=== PATIENT | male | born 1975 | race Caucasian/White ===

== ENCOUNTER 2019-08-26 17:00 | Emergency (ER) | payer MEDICARE ==
[2019-08-26] MEDS ORDERED: Naloxone 0.4 MG in Sodium Chloride 0.9% 100 ML IV ONE (17:01)
[2019-08-26] MEDS ORDERED: Sodium Chloride 0.9% 1,000 ML IV ONE ×2 (17:03→18:09)
[2019-08-26] MEDS ORDERED: Naloxone 0.4 MG/ML SDV IVPUSH ONE (17:05)
[2019-08-26] MEDS ORDERED: Naloxone 0.4 MG/ML SDV ONE ×3 (17:06→17:08)
--- NOTE | 2019-08-26 17:15 | EDM.PDOC ---
ED HPI GENERAL MEDICAL PROBLEM - General Chief Complaint: Drug or Alcohol Abuse Stated Complaint: Unresponsive Time Seen by Provider: 08/26/19 17:00 Source of Information: Reports: EMS History Limitations: Reports: Altered Mental Status - History of Present Illness INITIAL COMMENTS - FREE TEXT/NARRATIVE: 44-year-old male who presents to the emergency department via ambulance for altered mental status. The patient is unable to give any history. The reports from EMS were that the patient was last seen "well" last night and apparently the patient has been lying on the couch all day long and has been "unresponsive ". The patient was apparently staying at a friend's house and called 911 tonight when he would just not respond to any stimuli. The patient was brought by a BLS service and ALS intercept found the patient to be unresponsive to any stimuli and the patient was given intranasal Narcan. The patient seemed to become more responsive at this time but did have a blood pressure in the 80-90 systolic range and had O2 saturations in the 95 percent range on 3 L via nasal cannula. An IV was established and the patient was transported to the emergency department. There was no history of trauma given per EMS but really no other history can be obtained as the patient cannot provide us with any information and the "friend" was not available via phone or here for any further information. There are no other associated signs or symptoms. There are no other modifying factors. Onset: Other (? Last night) Duration: Constant Treatments SPECIFICATION MANAGER: Reports: IV/IO, Other (see below) (Intranasal Narcan) - Related Data Allergies Allergy/AdvReac Type Severity Reaction Status Date / Time Unable to Assess Allergy Verified 08/26/19 18:14 Home Meds: Home Meds . [Unable to Verify Home Med List] 08/26/19 [History] Past Medical History Musculoskeletal History: Reports: Other (See Below) (Chronic pain. 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 Responds only to noxious stimuli. 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 He does have evidence of previous right frontotemporal craniotomy.) Neck: Normal Inspection, Supple, Non-Tender, Full Range of Motion Respiratory/Chest: No Respiratory Distress, Lungs Clear, Normal Breath Sounds, No Accessory Muscle Use Cardiovascular: Normal Peripheral Pulses, Regular Rate, Rhythm, No JVD, No Murmur GI/Abdominal: Soft, Non-Tender, Abnormal Bowel Sounds (Bowel sounds decreased) (Male) Exam: Normal Inspection, Other (He does have some erythema in his skin of his perineal area and it has a strong smell of urine) Neuro Exam (Abbreviated): Inattentive, Disoriented, Other (Responds only to noxious stimuli. Does not follow commands. He does seem to move his arms and legs symmetrically.) Back Exam: Normal Inspection (Except for some erythema diffusely of his skin.) Skin Exam: Dry, Intact EKG INTERPRETATION EKG Date: 08/26/19 Time: 19:38 Rhythm: NSR Rate (Beats/Min): 67 [place]: LAD-Left [place] Deviation P-Wave: Present QRS: Normal ST-T: Depressed (And biphasic in anterior and lateral leads. Depressed in inferior leads) QT: Prolonged Comparison: NA - No Prior EKG Course - Vital Signs Last Recorded V/S: Last Vital Signs Temp 36.4 C 08/26/19 17:05 Pulse 73 08/26/19 17:05 Resp 18 08/26/19 17:05 BP 77/26 L 08/26/19 17:05 Pulse Ox 97 08/26/19 17:10 - Orders/Labs/Meds Orders: Active Orders 24 hr Category Date Time Status EKG Documentation Completion [RC] ASDIRECTED Care 08/26/19 19:19 Active Camacho Catheter Insertion [Insert Urinary Catheter] [OM. Care 08/26/19 17:15 Ordered PC] Q24H Urinary Catheter Assessment [RC] QSHIFT Care 08/26/19 17:10 Active Chest 1V Frontal [CR] Stat Exams 08/26/19 18:49 Taken Head wo Cont [CT] Stat Exams 08/26/19 18:49 Taken CULTURE BLOOD [BC] Urgent Lab 08/26/19 17:25 Received CULTURE BLOOD [BC] Urgent Lab 08/26/19 17:30 Received CULTURE URINE [RM] Stat Lab 08/26/19 17:30 Received Aspirin Med 08/26/19 20:46 Once 300 mg RECTAL ONETIME ONE Heparin Sodium/0.45% NaCl [Heparin 25,000 Units in 1/2 Med 08/26/19 20:03 Active NS 500 ML] 500 ml IV ASDIRECTED Naloxone [Narcan] 0.4 mg Med 08/26/19 19:30 Active Sodium Chloride 0.9% [Normal Saline] 100 ml IV ASDIRECTED Sodium Chloride 0.9% [Normal Saline] 1,000 ml Med 08/26/19 18:15 Active IV ASDIRECTED Blood Culture x2 Reflex Set [OM.PC] Urgent Oth 08/26/19 17:09 Ordered EKG 12 Lead [EK] Routine Ther 08/26/19 19:17 Ordered Medication Orders Sodium Chloride (Normal Saline) 1,000 mls @ 150 mls/hr IV ASDIRECTED BESS Last Admin: 08/26/19 19:14 Dose: 150 mls/hr Naloxone HCl 0.4 mg/ Sodium (Chloride) 101 mls @ 25 mls/hr IV ASDIRECTED BESS Last Admin: 08/26/19 19:44 Dose: 25 mls/hr Heparin Sodium/Sodium Chloride (Heparin 25,000 Units In 1/2 Ns 500 Ml) 500 mls @ 20 mls/hr IV ASDIRECTED BESS Last Admin: 08/26/19 20:27 Dose: 20 mls/hr Labs: Laboratory Tests 08/26/19 08/26/19 08/26/19 Range/Units 17:25 17:25 17:25 WBC 7.5 (4.5-12.0) X10-3/uL RBC 6.63 H (4.30-5.75) x10(6)uL Hgb 19.3 H (13.5-17.8) g/dL Hct 56.9 H (30.0-51.3) % MCV 85.8 (80-96) fL MCH 29.1 (27.7-33.6) pg MCHC 33.9 (32.2-35.4) g/dL RDW 13.9 (11.5-15.5) % Plt Count 258 (125-369) X10(3)uL MPV 9.1 (7.4-10.4) fL Neut % (Auto) 65.6 (46-82) % Lymph % (Auto) 27.8 (13-37) % [place] % (Auto) 3.7 L (4-12) % Eos % (Auto) 1 (1.0-5.0) % Baso % (Auto) 2 (0-2) % Neut # (Auto) 4.8 (1.6-8.3) # Lymph # (Auto) 2.1 (0.6-5.0) # Cuming # (Auto) 0.3 (0.0-1.3) # Eos # (Auto) 0.1 (0.0-0.8) # Baso # (Auto) 0.2 (0.0-0.2) # APTT (24.4-33.2) SECONDS POC VBG pH (7.31-7.41) POC VBG pCO2 (41-51) mmHG POC VBG HCO3 (23-28) mmol/L POC VBG Total CO2 (24-29) mmol/L POC VBG Base Excess (-2-3) mmol/L Sodium 120 L (135-145) mmol/L Potassium 3.3 L (3.5-5.3) mmol/L Chloride 85 L* (100-110) mmol/L Carbon Dioxide 26 (21-32) mmol/L BUN 6 L (7-18) mg/dL Creatinine 1.2 (0.70-1.30) mg/dL Est Cr Clr Drug Dosing 99.00 mL/min Estimated GFR (MDRD) > 60 (>60) BUN/Creatinine Ratio 5.0 L (9-20) Glucose 102 (80-116) mg/dL Lactic Acid 2.6 H (0.4-2.2) mmol/L Calcium 8.6 (8.6-10.2) mg/dL Magnesium (1.8-2.5) mg/dL Total Bilirubin 0.9 (0.1-1.3) mg/dL AST 92 H (5-25) IU/L ALT 51 H (12-36) U/L Alkaline Phosphatase 151 H (56-112) IU/L Creatine Kinase (60-160) IU/L Troponin I (<0.017-0.056) ng/mL C-Reactive Protein (0.5-0.9) mg/dL Total Protein 7.5 (6.0-8.0) g/dL Albumin 3.4 L (3.5-5.2) g/dL Globulin 4.1 g/dL Albumin/Globulin Ratio 0.8 Urine Color (YELLOW) Urine Appearance (CLEAR) Urine pH (5.0-6.5) Ur Specific [place] (1.010-1.025) Urine Protein (NEGATIVE) mg/dL Urine Glucose (UA) (NORMAL) mg/dL Urine Ketones (NEGATIVE) mg/dL Urine Occult Blood (NEGATIVE) Urine Nitrite (NEGATIVE) Urine Bilirubin (NEGATIVE) Urine Urobilinogen (NEGATIVE) mg/dL Ur Leukocyte Esterase (NEGATIVE) Urine RBC (0-5) Urine WBC (0-5) Ur Squamous Epith Cells (NS,R,O) Urine Bacteria (NS) Urine Opiates Screen (NEGATIVE) Ur Oxycodone Screen (NEGATIVE) Ur Propoxyphene Screen (NEGATIVE) Ur Barbituates Screen (NEGATIVE) Ur Tricyclics Screen (NEGATIVE) Ur Phencyclidine Scrn (NEGATIVE) Ur Amphetamine Screen (NEGATIVE) Urine MDMA Screen (NEGATIVE) U Benzodiazepines Scrn (NEGATIVE) U Cocaine Metab Screen (NEGATIVE) U Marijuana (THC) Screen (NEGATIVE) 08/26/19 08/26/19 08/26/19 Range/Units 17:25 17:25 17:25 WBC (4.5-12.0) X10-3/uL RBC (4.30-5.75) x10(6)uL Hgb (13.5-17.8) g/dL Hct (30.0-51.3) % MCV (80-96) fL MCH (27.7-33.6) pg MCHC (32.2-35.4) g/dL RDW (11.5-15.5) % Plt Count (125-369) X10(3)uL MPV (7.4-10.4) fL Neut % (Auto) (46-82) % Lymph % (Auto) (13-37) % [place] % (Auto) (4-12) % Eos % (Auto) (1.0-5.0) % Baso % (Auto) (0-2) % Neut # (Auto) (1.6-8.3) # Lymph # (Auto) (0.6-5.0) # [place] # (Auto) (0.0-1.3) # Eos # (Auto) (0.0-0.8) # Baso # (Auto) (0.0-0.2) # APTT (24.4-33.2) SECONDS POC VBG pH (7.31-7.41) POC VBG pCO2 (41-51) mmHG POC VBG HCO3 (23-28) mmol/L POC VBG Total CO2 (24-29) mmol/L POC VBG Base Excess (-2-3) mmol/L Sodium (135-145) mmol/L Potassium (3.5-5.3) mmol/L Chloride (100-110) mmol/L Carbon Dioxide (21-32) mmol/L BUN (7-18) mg/dL Creatinine (0.70-1.30) mg/dL Est Cr Clr Drug Dosing mL/min Estimated GFR (MDRD) (>60) BUN/Creatinine Ratio (9-20) Glucose (80-116) mg/dL Lactic Acid (0.4-2.2) mmol/L Calcium (8.6-10.2) mg/dL Magnesium (1.8-2.5) mg/dL Total Bilirubin (0.1-1.3) mg/dL AST (5-25) IU/L ALT (12-36) U/L Alkaline Phosphatase (56-112) IU/L Creatine Kinase 3400 H* (60-160) IU/L Troponin I 0.406 H* (<0.017-0.056) ng/mL C-Reactive Protein 6.5 H* (0.5-0.9) mg/dL Total Protein (6.0-8.0) g/dL Albumin (3.5-5.2) g/dL Globulin g/dL Albumin/Globulin Ratio Urine Color (YELLOW) Urine Appearance (CLEAR) Urine pH (5.0-6.5) Ur Specific [place] (1.010-1.025) Urine Protein (NEGATIVE) mg/dL Urine Glucose (UA) (NORMAL) mg/dL Urine Ketones (NEGATIVE) mg/dL Urine Occult Blood (NEGATIVE) Urine Nitrite (NEGATIVE) Urine Bilirubin (NEGATIVE) Urine Urobilinogen (NEGATIVE) mg/dL Ur Leukocyte Esterase (NEGATIVE) Urine RBC (0-5) Urine WBC (0-5) Ur Squamous Epith Cells (NS,R,O) Urine Bacteria (NS) Urine Opiates Screen (NEGATIVE) Ur Oxycodone Screen (NEGATIVE) Ur Propoxyphene Screen (NEGATIVE) Ur Barbituates Screen (NEGATIVE) Ur Tricyclics Screen (NEGATIVE) Ur Phencyclidine Scrn (NEGATIVE) Ur Amphetamine Screen (NEGATIVE) Urine MDMA Screen (NEGATIVE) U Benzodiazepines Scrn (NEGATIVE) U Cocaine Metab Screen (NEGATIVE) U Marijuana (THC) Screen (NEGATIVE) 08/26/19 08/26/19 08/26/19 Range/Units 17:25 17:30 17:30 WBC (4.5-12.0) X10-3/uL RBC (4.30-5.75) x10(6)uL Hgb (13.5-17.8) g/dL Hct (30.0-51.3) % MCV (80-96) fL MCH (27.7-33.6) pg MCHC (32.2-35.4) g/dL RDW (11.5-15.5) % Plt Count (125-369) X10(3)uL MPV (7.4-10.4) fL Neut % (Auto) (46-82) % Lymph % (Auto) (13-37) % [place] % (Auto) (4-12) % Eos % (Auto) (1.0-5.0) % Baso % (Auto) (0-2) % Neut # (Auto) (1.6-8.3) # Lymph # (Auto) (0.6-5.0) # [place] # (Auto) (0.0-1.3) # Eos # (Auto) (0.0-0.8) # Baso # (Auto) (0.0-0.2) # APTT 34.8 H (24.4-33.2) SECONDS POC VBG pH (7.31-7.41) POC VBG pCO2 (41-51) mmHG POC VBG HCO3 (23-28) mmol/L POC VBG Total CO2 (24-29) mmol/L POC VBG Base Excess (-2-3) mmol/L Sodium (135-145) mmol/L Potassium (3.5-5.3) mmol/L Chloride (100-110) mmol/L Carbon Dioxide (21-32) mmol/L BUN (7-18) mg/dL Creatinine (0.70-1.30) mg/dL Est Cr Clr Drug Dosing mL/min Estimated GFR (MDRD) (>60) BUN/Creatinine Ratio (9-20) Glucose (80-116) mg/dL Lactic Acid (0.4-2.2) mmol/L Calcium (8.6-10.2) mg/dL Magnesium (1.8-2.5) mg/dL Total Bilirubin (0.1-1.3) mg/dL AST (5-25) IU/L ALT (12-36) U/L Alkaline Phosphatase (56-112) IU/L Creatine Kinase (60-160) IU/L Troponin I (<0.017-0.056) ng/mL C-Reactive Protein (0.5-0.9) mg/dL Total Protein (6.0-8.0) g/dL Albumin (3.5-5.2) g/dL Globulin g/dL Albumin/Globulin Ratio Urine Color Yellow (YELLOW) Urine Appearance Clear (CLEAR) Urine pH 6.0 (5.0-6.5) Ur Specific [place] 1.005 L (1.010-1.025) Urine Protein Negative (NEGATIVE) mg/dL Urine Glucose (UA) Normal (NORMAL) mg/dL Urine Ketones 15 H (NEGATIVE) mg/dL Urine Occult Blood Negative (NEGATIVE) Urine Nitrite Negative (NEGATIVE) Urine Bilirubin Negative (NEGATIVE) Urine Urobilinogen Normal (NEGATIVE) mg/dL Ur Leukocyte Esterase Negative (NEGATIVE) Urine RBC 0-5 (0-5) Urine WBC 0-5 (0-5) Ur Squamous Epith Cells Occasional (NS,R,O) Urine Bacteria Few H (NS) Urine Opiates Screen Negative (NEGATIVE) Ur Oxycodone Screen Positive (NEGATIVE) Ur Propoxyphene Screen Negative (NEGATIVE) Ur Barbituates Screen Negative (NEGATIVE) Ur Tricyclics Screen Negative (NEGATIVE) Ur Phencyclidine Scrn Negative (NEGATIVE) Ur Amphetamine Screen Negative (NEGATIVE) Urine MDMA Screen Negative (NEGATIVE) U Benzodiazepines Scrn Negative (NEGATIVE) U Cocaine Metab Screen Negative (NEGATIVE) U Marijuana (THC) Screen Negative (NEGATIVE) 08/26/19 08/26/19 Range/Units 17:30 18:01 WBC (4.5-12.0) X10-3/uL RBC (4.30-5.75) x10(6)uL Hgb (13.5-17.8) g/dL Hct (30.0-51.3) % MCV (80-96) fL MCH (27.7-33.6) pg MCHC (32.2-35.4) g/dL RDW (11.5-15.5) % Plt Count (125-369) X10(3)uL MPV (7.4-10.4) fL Neut % (Auto) (46-82) % Lymph % (Auto) (13-37) % [place] % (Auto) (4-12) % Eos % (Auto) (1.0-5.0) % Baso % (Auto) (0-2) % Neut # (Auto) (1.6-8.3) # Lymph # (Auto) (0.6-5.0) # [place] # (Auto) (0.0-1.3) # Eos # (Auto) (0.0-0.8) # Baso # (Auto) (0.0-0.2) # APTT (24.4-33.2) SECONDS POC VBG pH 7.29 L (7.31-7.41) POC VBG pCO2 47.2 (41-51) mmHG POC VBG HCO3 22.6 L (23-28) mmol/L POC VBG Total CO2 24 (24-29) mmol/L POC VBG Base Excess -4 L (-2-3) mmol/L Sodium (135-145) mmol/L Potassium (3.5-5.3) mmol/L Chloride (100-110) mmol/L Carbon Dioxide (21-32) mmol/L BUN (7-18) mg/dL Creatinine (0.70-1.30) mg/dL Est Cr Clr Drug Dosing mL/min Estimated GFR (MDRD) (>60) BUN/Creatinine Ratio (9-20) Glucose (80-116) mg/dL Lactic Acid (0.4-2.2) mmol/L Calcium (8.6-10.2) mg/dL Magnesium 2.5 (1.8-2.5) mg/dL Total Bilirubin (0.1-1.3) mg/dL AST (5-25) IU/L ALT (12-36) U/L Alkaline Phosphatase (56-112) IU/L Creatine Kinase (60-160) IU/L Troponin I (<0.017-0.056) ng/mL C-Reactive Protein (0.5-0.9) mg/dL Total Protein (6.0-8.0) g/dL Albumin (3.5-5.2) g/dL Globulin g/dL Albumin/Globulin Ratio Urine Color (YELLOW) Urine Appearance (CLEAR) Urine pH (5.0-6.5) Ur Specific [place] (1.010-1.025) Urine Protein (NEGATIVE) mg/dL Urine Glucose (UA) (NORMAL) mg/dL Urine Ketones (NEGATIVE) mg/dL Urine Occult Blood (NEGATIVE) Urine Nitrite (NEGATIVE) Urine Bilirubin (NEGATIVE) Urine Urobilinogen (NEGATIVE) mg/dL Ur Leukocyte Esterase (NEGATIVE) Urine RBC (0-5) Urine WBC (0-5) Ur Squamous Epith Cells (NS,R,O) Urine Bacteria (NS) Urine Opiates Screen (NEGATIVE) Ur Oxycodone Screen (NEGATIVE) Ur Propoxyphene Screen (NEGATIVE) Ur Barbituates Screen (NEGATIVE) Ur Tricyclics Screen (NEGATIVE) Ur Phencyclidine Scrn (NEGATIVE) Ur Amphetamine Screen (NEGATIVE) Urine MDMA Screen (NEGATIVE) U Benzodiazepines Scrn (NEGATIVE) U Cocaine Metab Screen (NEGATIVE) U Marijuana (THC) Screen (NEGATIVE) Meds: Medications Generic Name Dose Route Start Last Admin Trade Name Freq PRN Reason Stop Dose Admin Sodium Chloride 1,000 mls @ 150 mls/hr 08/26/19 18:15 08/26/19 19:14 Normal Saline IV 150 mls/hr ASDIRECTED BESS Administration Naloxone HCl 0.4 mg/ Sodium 101 mls @ 25 mls/hr 08/26/19 19:30 08/26/19 19:44 Chloride IV 25 mls/hr ASDIRECTED BESS Administration Heparin Sodium/Sodium Chloride 500 mls @ 20 mls/hr 08/26/19 20:03 08/26/19 20 :27 Heparin 25,000 Units In 1/2 Ns 500 Ml IV 20 mls/hr ASDIRECTED BESS Administration Discontinued Medications Generic Name Dose Route Start Last Admin Trade Name Larissa PRN Reason Stop Dose Admin Heparin Sodium (Porcine) 4,000 units 08/26/19 20:02 08/26/19 20:21 Heparin Sodium IVPUSH 08/26/19 20:03 4,000 units .BOLUS ONE Administration Hydrocortisone Sodium Succinate 100 mg 08/26/19 20:02 08/26/19 20:22 Solu-Cortef IVPUSH 08/26/19 20:03 100 mg ONETIME ONE Administration Sodium Chloride 1,000 mls @ 999 mls/hr 08/26/19 17:03 08/26/19 17:05 Normal Saline IV 08/26/19 18:03 999 mls/hr .BOLUS ONE Administration Sodium Chloride 1,000 mls @ 999 mls/hr 08/26/19 18:09 08/26/19 18:10 Normal Saline IV 08/26/19 19:09 999 mls/hr .BOLUS ONE Administration Sodium Chloride Confirm 08/26/19 19:42 08/26/19 19:47 Normal Saline Administered 08/26/19 19:43 Not Given Dose 100 mls @ as directed .ROUTE .STK-MED ONE Lidocaine HCl 5 ml 08/26/19 17:18 08/26/19 18:36 Glydo .XX 08/26/19 17:19 Not Given ONETIME ONE Naloxone HCl 2 mg 08/26/19 17:05 08/26/19 17:10 Narcan IVPUSH 08/26/19 17:06 1.2 mg ONETIME ONE Administration Naloxone HCl Confirm 08/26/19 17:06 08/26/19 17:12 Narcan Administered 08/26/19 17:07 Not Given Dose 0.4 mg .ROUTE .STK-MED ONE Naloxone HCl Confirm 08/26/19 17:07 08/26/19 17:13 Narcan Administered 08/26/19 17:08 Not Given Dose 0.4 mg .ROUTE .STK-MED ONE Naloxone HCl Confirm 08/26/19 17:08 08/26/19 17:13 Narcan Administered 08/26/19 17:09 Not Given Dose 0.4 mg .ROUTE .[facility] - Radiology Interpretation Free Text/Narrative:: Portable chest x-ray shows no acute disease. CT scan of head shows no evidence of acute intracranial abnormality per the [facility] radiologist - Re-Assessments/Exams Free Text/Narrative Re-Assessment/Exam: 08/26/19 17:45: The patient responded well to IV fluids with an increase in his blood pressure to the 100 systolic range. He is also more responsive although he is still not verbally onset of or following commands. He does seem to move his arms and legs more spontaneously. Awaiting official reports of CT scan of his head laboratory data shows hyponatremia and polycythemia. He does appear to be somewhat dehydrated. 08/26/19 18:45: Patient remains with acute encephalopathy. He also has hyponatremia and evidence of rhabdomyolysis. He will need specially cares which are not available at [facility] and I will call [facility] in [place] did discuss his case. The patient remains hemodynamically stable with a blood pressure in the 100 systolic range at this point. Camacho catheter has been placed and he is producing good urine. 08/26/19 19:15: I discussed the patient's case with Dr. López, hospitalist at [facility] in [place], and he has agreed to accept the patient in transfer. He did suggest that we place the patient on a Narcan drip and continue with IV fluid hydration with normal saline. The patient will be transferred via [facility] ambulance service to [facility] in [place] for direct admission. 08/26/191999: Patient's EKG did show some evidence of her lateral ischemia and possible inferior ischemia there is no current of injury. The patient's troponin was 0.406. This is concerning for a non-STEMI. I did call and discuss the patient's case with Dr. 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 The patient is being placed on a Narcan drip and he will be given hydrocortisone [address] López also recommended that the patient be placed on a heparin drip and be given aspirin per rectum. 08/26/19 20:47: EMS is here and transporting the patient. The patient is much more responsive at this time and had to be placed in restraints. He is still not verbally responsive but he moves his arms and legs symmetrically. He remains hemodynamically stable at this point. Departure - Departure Time of Disposition: 20:50 Disposition: DC/Tfer to Acute Hospital 02 Condition: Critical Clinical Impression: Encephalopathy acute, Hyponatremia, Non-STEMI (non-ST elevated myocardial infarction) Rhabdomyolysis Qualifiers: Rhabdomyolysis type: non-traumatic Qualified Code(s): M62.82 - Rhabdomyolysis - Discharge Information Referrals: PCP,None [Primary Care Provider] - Forms: ED Department Discharge - My Orders Last 24 Hours: My Active Orders 08/26/19 17:09 Blood Culture x2 Reflex Set [OM.PC] Urgent 08/26/19 17:10 Urinary Catheter Assessment [RC] QSHIFT 08/26/19 17:15 Camacho Catheter Insertion [Insert Urinary Catheter] [OM.PC] Q24H 08/26/19 17:25 CULTURE BLOOD [BC] Urgent 08/26/19 17:30 CULTURE BLOOD [BC] Urgent CULTURE URINE [RM] Stat 08/26/19 18:15 Sodium Chloride 0.9% [Normal Saline] 1,000 ml IV ASDIRECTED 08/26/19 18:49 Chest 1V Frontal [CR] Stat Head wo Cont [CT] Stat 08/26/19 19:17 EKG 12 Lead [EK] Routine 08/26/19 19:19 EKG Documentation Completion [RC] ASDIRECTED 08/26/19 19:30 Naloxone [Narcan] 0.4 mg Sodium Chloride 0.9% [Normal Saline] 100 ml IV ASDIRECTED 08/26/19 20:03 Heparin Sodium/0.45% NaCl [Heparin 25,000 Units in 1/2 NS 500 ML] 500 ml IV ASDIRECTED 08/26/19 20:46 Aspirin 300 mg RECTAL ONETIME ONE - Assessment/Plan Last 24 Hours: My Active Orders 08/26/19 17:09 Blood Culture x2 Reflex Set [OM.PC] Urgent 08/26/19 17:10 Urinary Catheter Assessment [RC] QSHIFT 08/26/19 17:15 Camacho Catheter Insertion [Insert Urinary Catheter] [OM.PC] Q24H 08/26/19 17:25 CULTURE BLOOD [BC] Urgent 08/26/19 17:30 CULTURE BLOOD [BC] Urgent CULTURE URINE [RM] Stat 08/26/19 18:15 Sodium Chloride 0.9% [Normal Saline] 1,000 ml IV ASDIRECTED 08/26/19 18:49 Chest 1V Frontal [CR] Stat Head wo Cont [CT] Stat 08/26/19 19:17 EKG 12 Lead [EK] Routine 08/26/19 19:19 EKG Documentation Completion [RC] ASDIRECTED 08/26/19 19:30 Naloxone [Narcan] 0.4 mg Sodium Chloride 0.9% [Normal Saline] 100 ml IV ASDIRECTED 08/26/19 20:03 Heparin Sodium/0.45% NaCl [Heparin 25,000 Units in 1/2 NS 500 ML] 500 ml IV ASDIRECTED 08/26/19 20:46 Aspirin 300 mg RECTAL ONETIME ONE
[2019-08-26] MEDS ORDERED: Lidocaine 2% HCl 6 ML JEL.PF.APP ONE (17:18)
[2019-08-26] MEDS ORDERED: Sodium Chloride 0.9% 1,000 ML IV SCH (18:15)
[2019-08-26] MEDS ORDERED: Naloxone 0.4 MG in Sodium Chloride 0.9% 100 ML IV SCH (19:30)
[2019-08-26] MEDS ORDERED: Sodium Chloride 0.9% 100 ML ONE (19:42)
[2019-08-26] MEDS ORDERED: Hydrocortisone Sodium Succinate 100 MG/2 ML SDV IVPUSH ONE (20:02)
[2019-08-26] MEDS ORDERED: Heparin Sodium 5,000 Units/ML Vial IVPUSH ONE (20:02)
[2019-08-26] MEDS ORDERED: Heparin Sodium/0.45% NaCl 500 ML IV SCH (20:03)
[2019-08-26] MEDS ORDERED: Aspirin 300 MG Supp RECTAL ONE (20:46)
== END 2019-08-26 20:55 ==
LOC: FB.ED 17:00
DX: G93.40 Encephalopathy, unspecified (principal); E87.1 Hypo-osmolality and hyponatremia; I21.3 ST elevation (STEMI) myocardial infarction of unspecified site; M62.82 Rhabdomyolysis
CPT/HCPCS: 36415; 51702; 70450; 71045; 80053; 80305-QW; 81001; 82550; 82803; 83605; 83735; 84484; 85025; 85730; 86140; 87040; 87086; 93005; 93010; 96361; 96365; 96368; 96375; 96376; 99285; 99285-25; J1644; J1720; J2310; J7030